=== PATIENT | female | born 1955 | race Caucasian/White ===

== ENCOUNTER → 2018-07-16 | Outpatient (CLI) | payer MEDICARE ==
--- NOTE | 2018-07-17 16:53 | ECHOF ---
Referral Reason:R01.1 cardiac murmur MEASUREMENTS -------- HEIGHT: 156.2 cm WEIGHT: 60.3 kg BP: 157/80 RVIDd: 3.2 cm (< 3.3) IVSd: 1.0 cm (0.6 - 1.1) LVIDd: 4.4 cm (3.9 - 5.3) LVPWd: 0.9 cm (0.6 - 1.1) IVSs: 1.4 cm LVIDs: 2.6 cm LVPWs: 1.5 cm LA Diam: 2.8 cm (2.7 - 3.8) LAESV Index (A-L): 23.84 ml/m Ao Diam: 2.7 cm (2.0 - 3.7) AV Cusp: 2.0 cm (1.5 - 2.6) MV EXCURSION: 16.920 mm (> 18.000) MV EF SLOPE: 156 mm/s (70 - 150) EPSS: 0.6 cm MV E Mervin: 0.97 m/s MV DecT: 156 ms MV A Mervin: 0.69 m/s MV E/A Ratio: 1.42 RAP: 5.00 mmHg RVSP: 26.09 mmHg FINDINGS -------- Sinus rhythm. This was a technically good study. The left ventricular size is normal. Left ventricular wall thickness is normal. Overall left vent ricular systolic function is normal with, an EF between 60 - 65 %. The right ventricle is normal in size. Normal LA size by volume 22+/-6 ml/m2. The right atrium is normal in size. Interatrial and interventricular septum intact. Trace amount of aortic regurgitation. Yrxp-hu-mlhveiyi mitral regurgitation is present. Mild tricuspid regurgitation present. Right ventricular systolic pressure is normal at < 35 mmHg. Trace/mild (physiologic) pulmonic regurgitation. The aortic root size is normal. Normal inferior vena cava with normal inspiratory collapse consistent with estimated right atrial pre ssure of 5 mmHg. There is no pericardial effusion. CONCLUSIONS -------- 1. Sinus rhythm. 2. This was a technically good study. 3. The left ventricular size is normal. 4. Left ventricular wall thickness is normal. 5. Overall left ventricular systolic function is normal with, an EF between 60 - 65 %. 6. The right ventricle is normal in size. 7. Normal LA size by volume 22+/-6 ml/m2. 8. The right atrium is normal in size. 9. Interatrial and interventricular septum intact. 10. Trace amount of aortic regurgitation. 11. Seyn-ce-hhrtkuzd mitral regurgitation is present. 12. Mild tricuspid regurgitation present. 13. Right ventricular systolic pressure is normal at < 35 mmHg. 14. Trace/mild (physiologic) pulmonic regurgitation. 15. The aortic root size is normal. 16. Normal inferior vena cava with normal inspiratory collapse consistent with estimated right atrial pressure of 5 mmHg. 17. There is no pericardial effusion. BRIDGE DESIGN ENGINEER: Jessica Beltran RDCS
== END | disposition home or self-care (01) ==
LOC: RADECHMAIN 13:07
PROVIDERS: ATTEND Internal Medicine
DX: I08.1 Rheumatic disorders of both mitral and tricuspid valves (principal)
CPT/HCPCS: 93306

== ENCOUNTER → 2019-12-30 | Outpatient (CLI) | payer MEDICARE ==
--- NOTE | 2019-12-30 16:05 | CT ---
EXAMINATION TYPE: CT angio neck DATE OF EXAM: 12/30/2019 HISTORY: Lt Carotid stenosis COMPARISON: None CT DLP: 201 mGycm. Automated Exposure Control for Dose Reduction was Utilized. TECHNIQUE: CTA scan of the neck is performed with IV Contrast, patient injected with 65 mL of Isovue 370, axial images are obtained, coronal and sagittal reformatted images are reviewed. Three-D recons tructed images are created on an independent workstation and reviewed. FINDINGS: Carotid/Vascular Structures: Carotid bulb on the left shows atheromatous change. High-grade stenosis of the proximal internal carotid artery on the left is suspected by NASCET criteria. Transverse aorta , innominate, left and right subclavian, left and right common carotid arteries are patent. Internal and external carotid arteries are patent. Other: Thyroid gland shows heterogeneous density likely due to underlying multinodular goiter. Skull base is normal. Some inflammatory change noted in the left maxillary sinus. IMPRESSION: The origin of the internal carotid artery on the left is not well seen due to calcificati on, proximal stenosis is suspected of the internal carotid artery measuring 60-70% diameter reduction , consider DSA for better evaluation.
== END | disposition home or self-care (01) ==
LOC: RADCTMAIN 12:33
PROVIDERS: ATTEND Internal Medicine Interventional Cardiology
DX: I65.29 Occlusion and stenosis of unspecified carotid artery (principal); Z91.040 Latex allergy status; Z88.5 Allergy status to narcotic agent
CPT/HCPCS: 70498; Q9967

== ENCOUNTER 2020-02-24 11:55 | Observation (INO) | payer MEDICARE ==
[2020-02-17 16:03] VITALS: BMI 23.4
[~2020-02-24 11:55] MED LIST: ASPIRIN 325 MG TAB PO PRN; SODIUM CHLORIDE 0.9% 1,000 ML in EMPTY BAG 1 BAG IV ONE
[2020-02-24] MEDS ORDERED: LIDOCAINE 1% INJ 10MG/ML (20 ML MDV) ONE (13:03)
[2020-02-24] MEDS ORDERED: HEPARIN SODIUM 1,000 UN/ML (10ML VL) ONE (13:12)
[2020-02-24] MEDS ORDERED: fentaNYL (PF) 50 MCG/ML 2 ML AMP ONE (13:29)
[2020-02-24 13:31] LABS: Basophils # (A) 0.2 k/uL (0-0.2); Basophils % (A) 2 %; Eosinophils # (A) 0.1 k/uL (0-0.7); Eosinophils % (A) 1 %; HGB 13.2 gm/dL (11.4-16.0); Lymphocytes # (A) 1.9 k/uL (1.0-4.8); Lymphocytes % (A) 25 %; MCH 30.6 pg (25.0-35.0); MCHC 33.8 g/dL (31.0-37.0); MCV 90.6 fL (80.0-100.0); Mean Platelet Volume 7.2; Monocytes # (A) 0.5 k/uL (0-1.0); Monocytes % (A) 7 %; Neutrophils # (A) 4.8 k/uL (1.3-7.7); Neutrophils % (A) 63 %; Platelet Count 360 k/uL (150-450); RDW 12.4 % (11.5-15.5); WBC 7.7 k/uL (3.8-10.6)
[2020-02-24] MEDS ORDERED: LIDOCAINE 1% INJ 10MG/ML (20 ML MDV) SQ ONE ×2 (13:35→16:43)
[2020-02-24] MEDS ORDERED: MIDAZOLAM 2 MG/2 ML VIAL IVP ONE (13:35)
[2020-02-24] MEDS ORDERED: fentaNYL (PF) 50 MCG/ML 2 ML AMP IV ONE (13:35)
[2020-02-24 13:42] LABS: Calcium 10.3 mg/dL (8.4-10.2); Potassium 4.6 mmol/L (3.5-5.1)
[2020-02-24] MEDS ORDERED: IOPAMIDOL-250 100ML BTL INTRAARTER ONE ×2 (13:59→17:19)
[2020-02-24] MEDS ORDERED: IOPAMIDOL-250 50ML BTL INTRAARTER ONE (14:00)
[2020-02-24] MEDS ORDERED: hydrALAZINE HCL 20 MG/ML 1 ML VIAL ONE (14:06)
[2020-02-24] MEDS ORDERED: hydrALAZINE HCL 20 MG/ML 1 ML VIAL IV ONE (14:09)
[2020-02-24] MEDS ORDERED: ONDANSETRON 4 MG/2 ML VIAL ONE ×2 (14:22→15:04)
[2020-02-24] MEDS ORDERED: ATROPINE SULFATE 0.1 MG/ML 10ML SYRINGE IV ONE (14:25)
[2020-02-24] MEDS ORDERED: ONDANSETRON 4 MG/2 ML VIAL IVP ONE (14:25)
[2020-02-24] MEDS ORDERED: HYDROmorphone 1 MG/ML 1 ML SYRINGE ONE (15:03)
[2020-02-24] MEDS ORDERED: SODIUM CHLORIDE 0.9% 1,000 ML IV ONE (15:54)
[2020-02-24] MEDS ORDERED: ONDANSETRON 4 MG/2 ML VIAL IVP STA (16:00)
--- NOTE | 2020-02-24 16:15 | P.PCN ---
Description of Procedure: PROCEDURES PERFORMED: Aortic arch angiography, selective right and left common carotid angiography INDICATION: Asymptomatic carotid artery stenosis HISTORY: Patient is a pleasant 64-year-old female with history of hypertension, hyperlipidemia, asymptomatic carotid artery stenosis who presents for carotid angiography. Patient did have screening workup performed which showed elevated left-sided velocities concerning for greater than 80% stenosis by ultrasound and therefore had CTA performed with inability to quantify degree of stenosis secondary to calcification. Therefore recommendations were made for carotid angiography. CONSENT:I have discussed the risks, benefits and alternative therapies for the above-mentioned procedure and for both sedation/analgesia as well as necessary blood product administration, if indicated, as they pertain to this patient. The patient has indicated understanding and acceptance of the risks and procedures discussed. PROCEDURE: After the risks, benefits and alternatives of the above mentioned procedure explained in detail with the patient, informed consent was obtained. Patient was taken to the catheterization lab and prepped and draped in usual fashion. 1% lidocaine was used to anesthetize the right femoral area. Using ultrasound guidance and micropuncture technique, a 5-Filipino sheath was placed in the right femoral artery. A 5-Filipino pigtail catheter was inserted into the ascending aorta and aortic arch angiography was performed using DSA. Next a 5- Filipino Vert catheter was engaged in the right common and left common carotid arteries and DSA angiography was performed. The catheters were then removed and the sheath was removed with manual pressure held with hemostasis achieved. Patient did have a vagal episode at the end of the procedure with heart rates in the 40s. This quickly improved however patient additionally had mild hematoma noted. Patient was transported back to the post catheterization holding area in stable condition. Conscious Sedation: Patient was monitored under the direct supervision of vision of myself for conscious sedation using Versed and fentanyl HEMODYNAMICS: Aorta: 176/92 Aortic arch: Type I aortic arch, no aortic aneurysm or dissection Right common carotid artery: No significant stenosis Right internal carotid artery: No significant stenosis Right external carotid artery: No significant stenosis Left common carotid artery: No significant stenosis Left internal carotid artery: There is a 85% focal stenosis of the proximal carotid bulb Left external carotid artery: No significant stenosis FINAL IMPRESSION: 1. Focal 85% stenosis of the left internal carotid artery PLAN: 1. Aggressive risk factor modification per most recent ACC/AHA guidelines. 2. Follow-up in the office with Dr. Graham in 1-2 weeks to discuss carotid intervention.
[2020-02-24] MEDS ORDERED: MIDAZOLAM 2 MG/2 ML VIAL IV ONE (16:43)
[2020-02-24] MEDS ORDERED: IV FLUID CONTINUATION 600 ML IV ONE (16:43)
--- NOTE | 2020-02-24 17:56 | P.PCN ---
Description of Procedure: PROCEDURES PERFORMED: Right lower extremity angiography INDICATION: Hypotension, concern of vascular access bleed HISTORY: Patient is a pleasant 64-year-old female with history of hypertension, hyperlipidemia and asymptomatic carotid artery stenosis who presented for outpatient carotid angiography. She underwent carotid angiography earlier today from the right femoral approach with a 5-Grenadian catheter. Procedure was uneventful and sheath was pulled with manual pressure held. There was concern of mild fullness in the right femoral area however additionally patient had extreme hypotension with previous blood pressures in the 170s to 180s systolics and after the procedure systolics 80s to 90s. Patient was monitored for some time with IV fluid bolus however felt "shaky" and had continued hypotension and therefore recommendations were made for right femoral angiography to rule out a bleed with possible intervention if there was a significant bleed. Patient of note does admit to a similar episode occurring after a cataract surgery with extreme hypotension apparently from a vagal response. Patient was noted be somewhat bradycardic initially postoperatively. CONSENT:I have discussed the risks, benefits and alternative therapies for the above-mentioned procedure and for both sedation/analgesia as well as necessary blood product administration, if indicated, as they pertain to this patient. The patient has indicated understanding and acceptance of the risks and procedures discussed. PROCEDURE: After the risks, benefits and alternatives of the above mentioned procedure explained in detail with the patient, informed consent was obtained. Patient was taken to the catheterization lab and prepped and draped in usual fashion. 1% lidocaine was used to anesthetize the left femoral area. A 5- Grenadian sheath was placed in the left femoral artery using modified Seldinger technique. A 5-Grenadian rim catheter was inserted into the right iliac artery and multiple images were obtained. There was no significant extrvasation noted. Patient tolerated the procedure well. Left femoral angiography was performed wh ich showed a very high bifurcation and therefore the sheath was pulled, manual pressure was held with hemostasis achieved. Patient was transported back to the post catheterization holding area in stable condition. Conscious Sedation: Patient was monitored under the direct supervision of vision of myself for conscious sedation using Versed and fentanyl for a total duration of 24 minutes HEMODYNAMICS: Aortic: 114/78 Right lower extremity: Right common iliac artery: There is no significant stenosis. Right external iliac artery: There is mild stenosis noted. No significant bleed. Right internal iliac artery: There is no significant stenosis. There is a more medial branch that appears to come close to the femoral area without any extravasation. Right common femoral artery: There is no significant stenosis. No significant bleed. Right profunda: There is no significant stenosis. No significant bleed. Right SFA: There is no significant stenosis. No significant bleed. FINAL IMPRESSION: 1. No significant bleed. 2. Hypotensive episode after initial carotid diagnostic procedure. Appears to have a history of similar episode with her cataract surgery. Appears mainly to be a vagal response. PLAN: 1. Continue to monitor hemoglobin and vital signs closely as well as vascular access sites. We will continue monitor patient overnight. If patient appears improved, likely discharge home tomorrow.
[2020-02-25] MEDS: ACETAMINOPHEN TAB 325 MG TAB PO PRN ×2 (01:20→09:25)
[2020-02-25 08:02] LABS: Basophils # (A) 0.1 k/uL (0-0.2); Basophils % (A) 1 %; Eosinophils # (A) 0.1 k/uL (0-0.7); Eosinophils % (A) 1 %; HCT 32.4 % (34.0-46.0); HGB 10.6 gm/dL (11.4-16.0); Lymphocytes # (A) 1.5 k/uL (1.0-4.8); Lymphocytes % (A) 17 %; MCH 29.9 pg (25.0-35.0); MCHC 32.8 g/dL (31.0-37.0); MCV 91.4 fL (80.0-100.0); Mean Platelet Volume 7.2; Monocytes # (A) 0.6 k/uL (0-1.0); Monocytes % (A) 7 %; Neutrophils # (A) 6.8 k/uL (1.3-7.7); Neutrophils % (A) 75 %; Platelet Count 287 k/uL (150-450); RBC 3.55 m/uL (3.80-5.40); RDW 12.6 % (11.5-15.5); WBC 9.1 k/uL (3.8-10.6)
[2020-02-25 08:16] LABS: Calcium 9.3 mg/dL (8.4-10.2); Phosphorus 4.2 mg/dL (2.5-4.5); Potassium 4.8 mmol/L (3.5-5.1)
[2020-02-25] MEDS ORDERED: lisinopriL 10 MG TAB PO SCH (09:30)
[2020-02-25] MEDS ORDERED: EZETIMIBE 10 MG TAB PO SCH (09:30)
[2020-02-25] MEDS ORDERED: ATORVASTATIN 20 MG TAB PO SCH (09:30)
[2020-02-25] MEDS ORDERED: MULTIVITAMINS, THERA 1 EACH TAB PO SCH (09:30)
[2020-02-25] MEDS ORDERED: PANTOPRAZOLE 40 MG TABLET PO SCH (09:30)
[2020-02-25] MEDS ORDERED: ASPIRIN 325 MG TAB PO SCH (09:30)
[2020-02-25 11:09] VITALS: BP 121/59; PULSE 70; RESP 16; TEMP 98.7
[2020-02-25 12:30] LABS: Appearance,Urine Clear (Clear); Bacteria,Urine Rare /hpf; Bilirubin,Urine Negative (Negative); Blood,Urine Trace (Negative); Color,Urine Light Yellow; Glucose,Urine (UA) Negative (Negative); Ketones,Urine Negative (Negative); Leukocyte Esterase,Urine Moderate (Negative); Nitrite,Urine Negative (Negative); Protein,Urine Negative (Negative); RBC,Urine 1 /hpf (0-5); Specific Gravity,Urine 1.006 (1.001-1.035); Squamous Epithelial Cell,Urine <1 /hpf (0-4); Urobilinogen,Urine <2.0 mg/dL (<2.0); WBC,Urine 10 /hpf (0-5)
--- NOTE | 2020-02-25 13:20 | P.PN ---
Subjective HISTORY OF PRESENTING ILLNESS This is a pleasant 64-year-old female past medical history significant for hypertension, hyperlipidemia, interstitial cystitis on immunosuppressive therapy, and carotid artery disease. Patient normally follows in the office with Dr. YARON Graham. She has been followed for carotid artery stenosis with ultrasound showing elevated velocities consistent with greater than 80% stenosis however CTA was not definitive as there was heavy calcification around the left internal carotid artery. Therefore recommendations were for a carotid angio to be performed. This was scheduled for a few weeks ago however patient did have exposure to cold good and this was delayed. Patient underwent right femoral ascess and uncomplicated aortic arch and bilateral carotid angiography with left internal carotid artery having a 85% stenosis of the carotid bulb. We had previously had a discussion and patient wanted to consider options and therefore no intervention was performed. Unfortunately patient had what appears to be a vagal response with temporary bradycardia in the 40s which resolved however also dramatic changes in blood pressure, previously 170s during the procedure and then in the 70s to 80s afterwards. Patient admitted to similar episode after her cataract procedure. There was concern about possible right femoral hematoma or retroperitoneal bleed and therefore patient was brought back to the catheterization lab and the right iliac and femoral artery were imaged via left femoral approach. There was no bleed noted. Due to prolonged need to lie on her back, a Etienne had been placed. Patient was kept overnight. She did have a fever overnight up to 102.6. Her blood pressures been stable. She has had a mild decrease in hemoglobin 13.2, 10.6 however did receive aggressive IV fluid hydration. Today she states she feels much better and denies any chest pain, pressure, shortness breath. Initially in the office she had denied any strokelike symptoms. Again yesterday when updating her H&P she had denied any new symptoms. However upon further investigation she states she has been having her right arm and leg numbness and "feeling differently" as well as a headache for the past 1-1.5 months. This has been fairly constant. She denies any previous similar episodes. REVIEW OF SYSTEMS At the time of my exam: CONSTITUTIONAL: +fever , no chills. CARDIOVASCULAR: Denies chest pain, shortness of breath, orthopnea, PND or palpitations. RESPIRATORY: Denies cough. GASTROINTESTINAL: Denies abdominal pain, diarrhea, constipation, nausea or vomiting. MUSCULOSKELETAL: Denies myalgias. NEUROLOGIC: +RUE, RLE numbness, tingling, no weakness. ENDOCRINE: Denies fatigue, weight change, polydipsia or polyurina. GENITOURINARY: Denies burning, hematuria or urgency with micturation. HEMATOLOGIC: Denies history of anemia or bleeding. PHYSICAL EXAMINATION Blood pressure 121/59 heart rate 70 afebrile and maintaining oxygen saturation on room air. CONSTITUTIONAL: No apparent distress. HEENT: Head is normocephalic. Pupils are equal, round. Sclerae anicteric. Mucous membranes of the mouth are moist. No JVD. No carotid bruit. CHEST EXAMINATION: Lungs are clear to auscultation. No chest wall tenderness is noted on palpation or with deep breathing. HEART EXAMINATION: Regular rate and rhythm. S1, S2 heard. No murmurs, gallops or rub. ABDOMEN: Soft, nontender. Positive bowel sounds. EXTREMITIES: 2+ peripheral pulses, no lower extremity edema and no calf tenderness. NEUROLOGIC EXAMINATION: Patient is awake, alert and oriented x3. ASSESSMENT 1. Left internal carotid artery 85% stenosis 2. Status post aortic arch and bilateral carotid angiography. Status post right femoral angiography for hypotension with no sign of bleed. 3. Hypotensive response after procedure. No signs of any bleed, mild decrease in hemoglobin may be related to IV fluid hydration. Bilateral groin sites appear stable without significant hematoma. Suspect related to a vagal response, similar to her prior episode during cataract procedure. 4. Right upper extremity numbness and paresthesias for 1-1.5 months. Given significant left carotid disease, this is concerning for possible previous stroke. If this is the case, would consider more urgent carotid revascularization. 5. Essential hypertension, labile initially in the 170s and now in the 120s and 130s. Suspect a major component of anxiety 6. Fever of unclear etiology. May be catheter related from Etienne however only moderate leukocyte esterase and white blood cells only 10 for urinalysis. PLAN Patient appears much improved today and vital signs appear stable. Suspect majority of hypotensive response related to vagal response after the procedure which apparently had happened with her prior cataract surgery as well. Patient had undergone a right femoral angiogram which showed no significant bleed and do not suspect any component of blood loss anemia. There is a drop in hemoglobin likely related to aggressive IV fluid hydration. Her Etienne has been discontinued and urinalysis only with moderate leukocyte Estrace. She has continued to be afebrile and we will continue to monitor. We have asked neurology to evaluate patient for possibility of a recent stroke in the last 1- 1.5 months. If patient did have a stroke, would consider more urgent carotid revascularization. Objective - Vital Signs Vital signs: Vital Signs Temp 98.7 F 02/25/20 11:06 Pulse 70 02/25/20 11:06 Resp 16 02/25/20 11:06 BP 121/59 02/25/20 11:06 Pulse Ox 96 02/25/20 11:06 Intake & Output 02/24/20 02/25/20 02/25/20 18:59 06:59 18:59 Intake Total 1600 386 Output Total 800 700 500 Balance 800 -700 -114 Weight 60.1 kg 69 kg Intake: IV 1600 Oral 386 Output: Urine 800 700 500 Uretheral (Etienne) 200 Other: Voiding Method Indwelling Catheter Indwelling Catheter Toilet # Voids 0 - Labs CBC & Chem 7: 02/25/20 07:35 02/25/20 07:35 Labs: Abnormal Lab Results - Last 24 Hours (Table) 02/24/20 02/25/20 02/25/20 Range/Units 12:20 07:35 07:35 RBC 3.55 L (3.80-5.40) m/uL Hgb 10.6 L (11.4-16.0) gm/dL Hct 32.4 L (34.0-46.0) % Glucose 116 H (74-99) mg/dL Calcium 10.3 H (8.4-10.2) mg/dL Urine Blood (Negative) Ur Leukocyte Esterase (Negative) Urine WBC (0-5) /hpf Urine Bacteria (None) /hpf 02/25/20 Range/Units 09:15 RBC (3.80-5.40) m/uL Hgb (11.4-16.0) gm/dL Hct (34.0-46.0) % Glucose (74-99) mg/dL Calcium (8.4-10.2) mg/dL Urine Blood Trace H (Negative) Ur Leukocyte Esterase Moderate H (Negative) Urine WBC 10 H (0-5) /hpf Urine Bacteria Rare H (None) /hpf
--- NOTE | 2020-02-25 13:59 | P.CNNES ---
History of Present Illness Consult date: 02/25/20 Requesting physician: Jeanmarie Mcdonald Reason for Consult: Right-sided numbness History of Present Illness: Patient is a 64-year-old female with history of hypertension, hyperlipidemia, asymptomatic carotid artery stenosis, who presents for carotid angiography yesterday at 11:55 AM. Patient's had a carotid Doppler, which revealed possible greater than 80% left ICA stenosis by ultrasound. Patient had CTA performed but was unable to quantify degree of stenosis secondary to calcification. Therefore she underwent carotid angiography. Carotid angiography revealed focal 85% stenosis of the left ICA. Aggressive risk factor modification was recommended. Neurology was consulted. Patient had a transient episode of hypotension and bradycardia after the procedure therefore patient was kept overnight. Patient states that about a month ago she woke up and noticed her right hand was numb. Later on she noticed that her right arm and right leg also felt numb. There was no problem with balance weakness, slurred speech facial droop or problem with the vision. She states that she just feels as if there is a Anton beyer shot. Patient's vital signs on arrival was blood pressure 99/54, pulse rate 70, temperature 97.1. Patient's blood test shows normal CBC, Chem-7, UA with moderate amount of leukocyte esterase. Patient currently takes lisinopril 10 mg twice a day, Zetia 10 mg, aspirin 325 mg, Crestor 5 mg twice a day, omeprazole 20 mg, multivitamin, cyclosporine 100 mg daily. Patient never smoked. Does not drink alcohol. Denies diabetes. Patient has hypertension diagnosed 2 years ago although she states she may have been even before that. Just a week ago she started taking CBD. Review of Systems Completely unremarkable except as mentioned above in HPI. Denies problems with vision, hoarseness, sore throat, dysphagia. Past Medical History Past Medical History: GERD/Reflux, Hyperlipidemia, Hypertension Additional Past Medical History / Comment(s): SOB, Interstitial cystitis, states has goiter on thyroid, dr is watching History of Any Multi-Drug Resistant Organisms: None Reported Past Surgical History: Tonsillectomy Additional Past Surgical History / Comment(s): jose cataract, ulcers on bladder cauterized, hydrodistention sx Past Anesthesia/Blood Transfusion Reactions: Previous Problems w/ Anesthesia Additional Past Anesthesia/Blood Transfusion Reaction / Comment(s): elevated b/p with cataract sx Past Psychological History: No Psychological Hx Reported Smoking Status: Never smoker Past Alcohol Use History: Occasional Additional Drug Use History / Comment(s): CBD gummies occasional use, instructed to hold 24 hrs prior to procedure Medications and Allergies Home Medications Medication Instructions Recorded Confirmed Type Aspirin 325 mg PO DAILY 02/17/20 02/24/20 History Cyclosporine, Modified [Gengraf] 100 mg PO DAILY 02/17/20 02/24/20 History Ezetimibe [Zetia] 10 mg PO DAILY 02/17/20 02/24/20 History Lisinopril [Prinivil] 10 mg PO BID 02/17/20 02/24/20 History Multivitamin [Multivitamins Adult 1 each PO DAILY 02/17/20 02/24/20 History Gummies] Omeprazole [PriLOSEC] 20 mg PO DAILY 02/17/20 02/24/20 History Rosuvastatin Calcium [Crestor] 5 mg PO BID 02/17/20 02/24/20 History Allergies Allergy/AdvReac Type Severity Reaction Status Date / Time latex Allergy Rash/Hives Verified 02/24/20 12:15 meperidine [From Demerol] Allergy Rash/Hives Verified 02/24/20 12:15 Physical Examination - Vital Signs Vital Signs: Vital Signs Temp Pulse Resp BP Pulse Ox 02/25/20 11:06 98.7 F 70 16 121/59 96 02/25/20 08:50 77 18 136/70 96 02/25/20 06:48 99.4 F 134/65 02/25/20 04:00 99.3 F 70 16 108/58 94 L 02/25/20 02:00 70 16 02/25/20 00:20 102.6 F H 02/25/20 00:00 101.3 F H 84 18 129/68 97 02/24/20 20:00 98.1 F 80 16 115/60 98 02/24/20 18:00 98.7 F 89 18 116/57 96 02/24/20 17:59 89 16 02/24/20 16:20 74 18 86/47 98 02/24/20 16:10 74 18 84/48 98 02/24/20 15:55 70 18 109/70 98 02/24/20 15:40 91 18 115/57 98 02/24/20 15:25 74 18 106/59 98 02/24/20 15:10 70 18 80/45 98 02/24/20 14:55 86 18 77/48 98 02/24/20 14:40 18 99/54 98 Intake and Output 02/24/20 02/25/20 02/25/20 22:59 06:59 14:59 Intake Total 600 386 Output Total 800 700 500 Balance -200 -700 -114 Intake: IV 600 Oral 386 Output: Urine 800 700 500 Uretheral (Etienne) 200 Other: Voiding Method Indwelling Catheter Indwelling Catheter Toilet # Voids 0 1 Weight 60.1 kg 69 kg On examination patient is an elderly female very pleasant in no acute distress. Patient is alert awake oriented to time place and person. Speech and limits functions are normal. Attention, concentration and fund of knowledge is adequate. On cranial examination pupils are round and reactive light, visual culp are full on confrontation with no neglect. Extraocular muscles are intact with no nystagmus. Patient has mild flattening of the right nasolabial fold. Tongue protrudes the midline. Palatal elevation and sensation normal. Hearing and shoulder shrug normal. On muscle strength testing there is no pronator drift and the strength is normal in arms and legs distally and proximally. Reflexes are 2+ all over and plantars downgoing. Sensory touch is equal with no neglect. No ataxia for [id number] or [id number]-tire testing. Tone and bulk of muscles and gait is normal. On general examination patient has bilateral carotid bruit, left more than right. S1 and S2 audible. No cyanosis or clubbing. No peripheral edema. Chest is clear, abdomen soft nontender. Results - Laboratory Findings CBC and BMP: 02/25/20 07:35 02/25/20 07:35 Abnormal Lab Findings: Abnormal Labs 02/24/20 02/25/20 02/25/20 12:20 07:35 07:35 RBC 3.55 L Hgb 10.6 L Hct 32.4 L Glucose 116 H Calcium 10.3 H Urine Blood Ur Leukocyte Esterase Urine WBC Urine Bacteria 02/25/20 09:15 RBC Hgb Hct Glucose Calcium Urine Blood Trace H Ur Leukocyte Esterase Moderate H Urine WBC 10 H Urine Bacteria Rare H Assessment and Plan Assessment: * Left ICA stenosis, 85% per conventional angiogram. The left internal carotid artery stenosis is probably symptomatic, as patient had symptoms of right- sided numbness of the body since last 1 month. Examination revealed mild flattening of the right nasolabial fold. Possible small CVA is a possibility. * Hypertension * Hyperlipidemia * Left ICA stenosis Plan: * Continue aspirin 325 mg daily and Crestor. * Agree with revascularization surgery for the left ICA stenosis, which is likely symptomatic. * As the symptoms have been present for 1 month, MRI of the brain will be negative for any acute stroke. We'll just check noncontrast CT head to rule out any structural abnormality before patient undergoes any revascularization procedure (for baseline). * Would defer stenting versus left CEA per Dr. Mcdonald. * Neurologically clear.
--- NOTE | 2020-02-25 14:47 | IR ---
EXAMINATION TYPE: IR angio aortic arch DATE OF EXAM: 02/24/2020 COMPARISON: NONE HISTORY: Fluoroscopy time. Fluoroscopy was provided to the referring clinician.
--- NOTE | 2020-02-25 14:47 | IR ---
EXAMINATION TYPE: IR angio abdominal w runoff DATE OF EXAM: 02/24/2020 COMPARISON: NONE HISTORY: Fluoroscopy time. Fluoroscopy was provided to the referring clinician.
--- NOTE | 2020-02-25 14:55 | CT ---
EXAMINATION TYPE: CT brain wo con DATE OF EXAM: 02/25/2020 HISTORY: CVA CT DLP: 1023.4 mGycm. Automated Exposure Control for Dose Reduction was Utilized. TECHNIQUE: CT scan of the head is performed without contrast. COMPARISON: None. FINDINGS: There is no acute intracranial hemorrhage or midline shift identified. Ventricles and sul ci within normal limits in size for patient's age. Clemens-white matter differentiation fairly well main tained. The globes are intact and the visualized sinuses are clear. IMPRESSION: No acute intracranial hemorrhage or midline shift. Unremarkable study.
--- NOTE | 2020-02-25 16:38 | P.DS ---
Providers Date of admission: 02/25/20 12:49 Attending physician: Jeanmarie Mcdonald DO Consults: 02/25/20 09:23 Consult Physician Routine Consulting Provider: Harvey Lechuga Consult Reason/Comments: right sided numbness Do you want consulting provider notified?: Yes Primary care physician: Beryl Jackson [facility] Course: This is a pleasant 64-year-old female past medical history significant for hypertension, hyperlipidemia, interstitial cystitis on immunosuppressive therapy, and carotid artery disease. Patient normally follows in the office with Dr. YARON Graham. She has been followed for carotid artery stenosis with ultrasound showing elevated velocities consistent with greater than 80% stenosis however CTA was not definitive as there was heavy calcification around the left internal carotid artery. Therefore recommendations were for a carotid angio to be performed. This was scheduled for a few weeks ago however patient did have exposure to cold good and this was delayed. Patient underwent right femoral ascess and uncomplicated aortic arch and bilateral carotid angiography with left internal carotid artery having a 85% stenosis of the carotid bulb. We had previously had a discussion and patient wanted to consider options and therefore no intervention was performed. Unfortunately patient had what appears to be a vagal response with temporary bradycardia in the 40s which resolved however also dramatic changes in blood pressure, previously 170s during the procedure and then in the 70s to 80s afterwards. Patient admitted to similar episode after her cataract procedure. There was concern about possible right femoral hematoma or retroperitoneal bleed and therefore patient was brought back to the catheterization lab and the right iliac and femoral artery were imaged via left femoral approach. There was no bleed noted. Due to prolonged need to lie on her back, a Etienne had been placed. Patient was kept overnight. She did have a fever overnight up to 102.6. Her blood pressures been stable. She had a mild decrease in hemoglobin 13.2, 10.6 however did receive aggressive IV fluid hydration. Today she states she feels much better and denies any chest pain, pressure, shortness breath. She was evaluated by neurology for right arm and leg numbness and "feeling differently" as well as a headache for the past 1-1.[address] brain was performed which showed no acute process. Neurology felt that likely the right numbness did represent small CVA and recommended revasularization. Plan - Discharge Summary Discharge Rx Participant: No New Discharge Prescriptions: No Action Lisinopril [Prinivil] 10 mg PO BID Ezetimibe [Zetia] 10 mg PO DAILY Aspirin 325 mg PO DAILY Rosuvastatin Calcium [Crestor] 5 mg PO BID Omeprazole [PriLOSEC] 20 mg PO DAILY Multivitamin [Multivitamins Adult Gummies] 1 each PO DAILY Cyclosporine, Modified [Gengraf] 100 mg PO DAILY Discharge Medication List Aspirin 325 mg PO DAILY 02/17/20 [History] Cyclosporine, Modified [Gengraf] 100 mg PO DAILY 02/17/20 [History] Ezetimibe [Zetia] 10 mg PO DAILY 02/17/20 [History] Lisinopril [Prinivil] 10 mg PO BID 02/17/20 [History] Multivitamin [Multivitamins Adult Gummies] 1 each PO DAILY 02/17/20 [History] Omeprazole [PriLOSEC] 20 mg PO DAILY 02/17/20 [History] Rosuvastatin Calcium [Crestor] 5 mg PO BID 02/17/20 [History] Follow up Appointment(s)/Referral(s): Rosemary Graham MD [STAFF PHYSICIAN] - 1 Week (THE OFFICE WILL CALL YOU WITH AN APPOINTMENT DATE AND TIME)
== END 2020-02-25 17:39 | disposition home or self-care (01) ==
LOC: CATHCVL 11:55 → 3SCARD 17:06 → CATHCVL 02-25 12:49
PROVIDERS: ADMIT Internal Medicine; ATTEND Internal Medicine
DX: I65.22 Occlusion and stenosis of left carotid artery (principal); I10 Essential (primary) hypertension; I49.3 Ventricular premature depolarization; E78.2 Mixed hyperlipidemia; R06.02 Shortness of breath; N30.10 Interstitial cystitis (chronic) without hematuria; K21.9 Gastro-esophageal reflux disease without esophagitis; E04.9 Nontoxic goiter, unspecified; I95.9 Hypotension, unspecified; R50.9 Fever, unspecified; R71.0 Precipitous drop in hematocrit; Z79.899 Other long term (current) drug therapy; Z79.82 Long term (current) use of aspirin; Z88.5 Allergy status to narcotic agent; Z91.040 Latex allergy status; Z98.42 Cataract extraction status, left eye; Z98.41 Cataract extraction status, right eye; Z82.49 Family history of ischemic heart disease and other diseases of the circulatory system
CPT/HCPCS: 36245; 75710; 36223; 80048; 80069; 85025 ×2; 81001; 87040; 70450; G0378; C1769 ×6; C1894; J2250; J0360; J2405; J2001; J0461; J3010; Q9966 ×2

== ENCOUNTER → 2020-03-05 | Outpatient (CLI) | payer MEDICARE ==
--- NOTE | 2020-03-05 14:36 | US ---
EXAMINATION TYPE: US lower ext pseudo artery RT DATE OF EXAM: 03/05/2020 COMPARISON: NONE CLINICAL HISTORY: I65.22 Occlusion and stenosis of left carotid ayanna. Patient had a procedure in the right groin last week. Bruising and pain. EXAM PERFORMED: Grayscale and color Doppler duplex imaging performed of the groin, post cardiac brigitte ter to assess for pseudoaneurysm. SIDE PERFORMED: Right Color and Waveform Doppler performed to assess for the presence of pseudoaneurysm; Is there ultrasound evidence of a pseudoaneurysm: No Is there evidence of AV shunting: No Is there a fluid collection present: Yes. There is a complex fluid collection visualized right groin measuring 7.6 x 1.8 x 5.0 cm IMPRESSION: 1. No diagnostic evidence of pseudoaneurysm. However, there is a complex fluid collection in the groi n could represent hematoma. Correlate clinically to exclude other etiologies.
== END | disposition home or self-care (01) ==
LOC: RADUSWWP 13:27
PROVIDERS: ATTEND Internal Medicine
DX: I72.4 Aneurysm of artery of lower extremity (principal); I65.22 Occlusion and stenosis of left carotid artery; R10.2 Pelvic and perineal pain
CPT/HCPCS: 93975